=== PATIENT | female | born 1955 | race Caucasian/White ===

== ENCOUNTER 2018-03-20 14:09 | Outpatient (CLI) | payer BC | END 2018-03-20 14:10 | disposition home or self-care (01) | LOC: BICMAMMO 14:09 | PROVIDERS: ATTEND Obstetrics & Gynecology | DX: Z12.31 Encounter for screening mammogram for malignant neoplasm of breast (principal); R92.1 Mammographic calcification found on diagnostic imaging of breast | CPT/HCPCS: 77063; 77067 ==

== ENCOUNTER 2022-04-19 12:10 | Outpatient (CLI) | payer BC | END 2022-04-19 12:11 | disposition home or self-care (01) | LOC: BICRAD 12:10 | PROVIDERS: ATTEND Nurse Practitioner Family | DX: J01.91 Acute recurrent sinusitis, unspecified (principal) | CPT/HCPCS: 71046 ==

== ENCOUNTER 2022-10-18 15:40 | Outpatient (CLI) | payer BC, MEDICARE | END 2022-10-18 15:41 | disposition home or self-care (01) | LOC: BICMAMMO 15:40 | PROVIDERS: ATTEND Family Medicine | DX: M85.89 Other specified disorders of bone density and structure, multiple sites (principal) | CPT/HCPCS: 77080 ==

== ENCOUNTER 2023-09-23 11:45 | Emergency (ER) | payer BC, MEDICARE ==
[2023-09-23 12:48] LABS: #Eosinphils 0.2 thou/uL (0.0-0.7); #Monocytes 0.6 thou/uL (0.11-0.59); #Neutrophils 7.3 thou/uL (1.40-6.50); %Basophils 0.4 % (0.0-1.0); %Eosinophils 1.7 % (0.0-10.0); %Monocytes 6.8 % (0.0-10.0); %Neutrophils 78.9 % (42.0-75.0); Hemoglobin 11.8 g/dL (12.0-16.0); Mean Corpuscular HGB CONC 31.1 g/dL (32.0-36.0); Mean Corpuscular Volume 96.7 fl (78.0-98.0); Mean Platelet Volume 10.8 fL (7.4-10.4); Platelet Count 264 10x3/uL (130-400); RBC Distribution Width 14.2 % (11.5-14.5); Red Blood Cell (RBC) Count 3.93 mill/uL (4.20-5.40); White Blood Cell (WBC) Count 9.3 10x3/uL (4.8-10.8)
[2023-09-23 13:03] LABS: Prothrombin Time 13.7 sec (12.0-14.7)
[2023-09-23 13:04] LABS: PTT 25.9 sec (22.9-36.1)
[2023-09-23 13:18] LABS: ALT (SGPT) 44 U/L (8-55); AST (SGOT) 23 U/L (5-34); Albumin 4.1 g/dL (3.4-4.8); Alkaline Phosphatase 189 U/L (40-110); Anion Gap 12 mmol/L (10-20); BUN (Urea Nitrogen) 8 mg/dL (9.8-20.1); Bilirubin, Total 0.4 mg/dL (0.2-1.2); Calc. Creatinine Clearance 0 mL/min (70-130); Calcium 9.9 mg/dL (7.8-10.44); Carbon Dioxide 28 mmol/L (23-31); Chloride 107 mmol/L (98-107); Estimated GFR 97; Globulin 2.6 g/dL (2.4-3.5); Glucose 102 mg/dL (80-115); Potassium 3.9 mmol/L (3.5-5.1); Protein, Total 6.7 g/dL (5.8-8.1); Sodium 143 mmol/L (136-145)
[2023-09-23] MEDS ORDERED: Apixaban 5 MG TAB PO SCH ×2 (16:00)
== END 2023-09-23 17:22 | disposition home or self-care (01) ==
LOC: ERS 11:45
DX: I82.431 Acute embolism and thrombosis of right popliteal vein (principal); I82.441 Acute embolism and thrombosis of right tibial vein; E11.9 Type 2 diabetes mellitus without complications; I10 Essential (primary) hypertension; E78.00 Pure hypercholesterolemia, unspecified; Z79.899 Other long term (current) drug therapy; M79.661 Pain in right lower leg; R60.0 Localized edema; I77.89 Other specified disorders of arteries and arterioles
CPT/HCPCS: 36415; 70450; 80053; 85025; 85610; 85730; 93923

== ENCOUNTER 2024-01-09 17:22 | Outpatient (CLI) | payer MEDICARE, BC | END 2024-01-09 17:23 | disposition home or self-care (01) | LOC: RAD 17:22 | DX: R05.1 Acute cough (principal); J98.4 Other disorders of lung; R91.8 Other nonspecific abnormal finding of lung field; Z98.890 Other specified postprocedural states | CPT/HCPCS: 71046 ==

== ENCOUNTER 2025-06-11 12:18 | Outpatient (CLI) | payer MEDICARE, BC | END 2025-06-11 12:19 | disposition home or self-care (01) | LOC: BICMAMMO 12:18 | PROVIDERS: ATTEND Obstetrics & Gynecology | DX: Z78.0 Asymptomatic menopausal state (principal); M85.89 Other specified disorders of bone density and structure, multiple sites; M81.0 Age-related osteoporosis without current pathological fracture | CPT/HCPCS: 77080 ==